=== PATIENT | male | born 1985 | race Caucasian/White ===

== ENCOUNTER 2021-06-03 14:33 | Emergency (ER) | payer BC ==
[2021-06-03 15:20] VITALS: BP 148/89; PULSE 94; TEMP 98; BMI 35.2
== END 2021-06-03 18:42 | disposition left against medical advice (07) ==
LOC: JERFT 14:33
DX: S22.42XA Multiple fractures of ribs, left side, initial encounter for closed fracture (principal); Y04.8XXA Assault by other bodily force, initial encounter; Y35.93XA Legal intervention, means unspecified, suspect injured, initial encounter
CPT/HCPCS: 71046-TC-FY; 71101-TC-LT-FY; 73070-TC-LT-FY; 99285-25

== ENCOUNTER 2022-06-15 13:42 | Emergency (ER) | payer BC ==
[2022-06-15 14:01] VITALS: RESP 16; TEMP 97.6; BMI 38.0
[2022-06-15] MEDS ORDERED: chlordiazePOXIDE HCL 25 MG CAPSULE PO ONE ×2 (17:21→17:23)
[2022-06-15] MEDS ORDERED: chlordiazePOXIDE HCL 25 MG CAPSULE ONE (17:36)
[2022-06-15 17:57] VITALS: BP 133/80; PULSE 90
== END 2022-06-15 18:09 | disposition short-term general hospital (02) ==
LOC: JER 13:42
DX: F10.129 Alcohol abuse with intoxication, unspecified (principal)
CPT/HCPCS: 99283-25

== ENCOUNTER 2022-06-15 18:46 | Inpatient (IN) | payer BC ==
[2022-06-15 19:33] VITALS: BMI 38.0
[2022-06-15] MEDS ORDERED: MAGNESIUM CITRATE 300 ML BOTTLE PO PRN (20:56)
[2022-06-15] MEDS ORDERED: BISMUTH SUBSALICYLATE 524 MG/30 ML PO PRN (20:56)
[2022-06-15] MEDS ORDERED: ACETAMINOPHEN 325 MG TABLET (FP) PO PRN ×2 (20:56)
[2022-06-15] MEDS ORDERED: LOPERAMIDE HCL 2 MG CAPSULE PO PRN (20:56)
[2022-06-15] MEDS ORDERED: MAGNESIUM HYDROX 2400MG/30ML ORAL SUSPENSION 30 ML CUP PO PRN (20:56)
[2022-06-15] MEDS ORDERED: ONDANSETRON *ODT* 4 MG TABLET SL PRN (20:56)
[2022-06-15] MEDS ORDERED: IBUPROFEN 400 MG TABLET (FP) PO PRN (20:56)
[2022-06-15] MEDS ORDERED: IBUPROFEN 600 MG TABLET (FP) PO PRN (20:56)
[2022-06-15] MEDS ORDERED: BENZOCAINE/MENTHOL (CHLORASEPTIC ) LOZENGE MM PRN (20:56)
[2022-06-15] MEDS ORDERED: DICYCLOMINE HCL 10 MG CAPSULE PO PRN (20:56)
[2022-06-15] MEDS ORDERED: P-EPHED 60MG/TRIPROLIDI 2.5MG TABLET PO PRN (20:56)
[2022-06-15] MEDS ORDERED: guaiFENesin 200 MG/10 ML 10 ML UNIT-DOSE CUPS PO PRN (20:56)
[2022-06-15] MEDS ORDERED: chlordiazePOXIDE HCL 25 MG CAPSULE PO ONE (20:58)
[2022-06-15] MEDS ORDERED: METOPROLOL TARTRATE 25 MG TABLET (FP) PO ONE (20:59)
[2022-06-15] MEDS ORDERED: chlordiazePOXIDE HCL 25 MG CAPSULE ONE (21:11)
[2022-06-15] MEDS: METHOCARBAMOL 500 MG TABLET PO PRN (22:01)
[2022-06-15] MEDS: MELATONIN 5 MG TABLETS PO PRN (22:01)
[2022-06-15] MEDS: THIAMINE HCL 100 MG TABLET (FP) PO SCH (22:02)
[2022-06-15] MEDS: MAG HYDROX/AL HYDROX/SIMETH 30 ML UNIT-DOSE CUP PO PRN (22:03)
[2022-06-15] MEDS: chlordiazePOXIDE HCL 25 MG CAPSULE PO SCH (22:06)
[2022-06-16] MEDS: hydrOXYzine PAMOATE 25 MG CAPSULE (FP) PO PRN ×3 (01:41→22:18)
[2022-06-16] MEDS: chlordiazePOXIDE HCL 25 MG CAPSULE PO PRN (01:42)
[2022-06-16] MEDS: METHOCARBAMOL 500 MG TABLET PO PRN ×3 (04:05→22:17)
[2022-06-16] MEDS: chlordiazePOXIDE HCL 25 MG CAPSULE PO SCH ×4 (05:32→22:18)
[2022-06-16] MEDS: PRENATAL VITAMINS W/ FOLIC ACID TABLET (FP) PO SCH (10:29)
[2022-06-16] MEDS: MAG HYDROX/AL HYDROX/SIMETH 30 ML UNIT-DOSE CUP PO PRN (10:31)
[2022-06-16 11:31] LABS: HEMATOCRIT 44.3 % (35.4-49); HEMOGLOBIN 15.2 GM/dL (11.7-16.9); MCH 31.9 pg (25.7-33.7); MCHC 34.4 g/dl (32.0-35.9); MEAN CELL VOLUME 92.8 fl (80-96); MEAN PLT VOLUME 7.6 fl (7.5-11.1); PLATELET COUNT 158 10^3/uL (134-434); RBC 4.78 M/mm3 (4.00-5.60); WHITE BLOOD COUNT 5.1 K/mm3 (4.0-10.0)
[2022-06-16 11:40] LABS: CALCIUM 9.4 mg/dL (8.5-10.1)
[2022-06-16 11:41] LABS: BLOOD UREA NITROGEN 12.7 mg/dL (7-18)
[2022-06-16 11:44] LABS: CREATININE 0.8 mg/dL (0.55-1.3)
[2022-06-16 11:45] LABS: BILIRUBIN,TOTAL 1.2 mg/dL (0.2-1); TOT PROT 7.3 g/dl (6.4-8.2)
[2022-06-16] MEDS: THIAMINE HCL 100 MG TABLET (FP) PO SCH (22:17)
[2022-06-17] MEDS: hydrOXYzine PAMOATE 25 MG CAPSULE (FP) PO PRN ×4 (06:23→22:19)
[2022-06-17] MEDS: chlordiazePOXIDE HCL 25 MG CAPSULE PO SCH ×4 (06:24→22:20)
[2022-06-17] MEDS: METHOCARBAMOL 500 MG TABLET PO PRN ×3 (06:26→22:19)
[2022-06-17] MEDS: PRENATAL VITAMINS W/ FOLIC ACID TABLET (FP) PO SCH (10:21)
[2022-06-17] MEDS: chlordiazePOXIDE HCL 25 MG CAPSULE PO PRN (13:04)
[2022-06-17] MEDS: MELATONIN 5 MG TABLETS PO PRN (22:18)
[2022-06-17] MEDS: THIAMINE HCL 100 MG TABLET (FP) PO SCH (22:18)
[2022-06-17] MEDS: NICOTINE 10 MG CARTRIDGE (INHALER) IH PRN (22:21)
[2022-06-18] MEDS ORDERED: chlordiazePOXIDE HCL 10 MG CAPSULE PO PRN
[2022-06-18] MEDS: chlordiazePOXIDE HCL 10 MG CAPSULE PO SCH ×4 (05:20→22:34)
[2022-06-18 09:03] VITALS: RESP 18
[2022-06-18] MEDS: PRENATAL VITAMINS W/ FOLIC ACID TABLET (FP) PO SCH (10:43)
[2022-06-18] MEDS: METHOCARBAMOL 500 MG TABLET PO PRN ×2 (10:44→22:34)
[2022-06-18] MEDS: MAG HYDROX/AL HYDROX/SIMETH 30 ML UNIT-DOSE CUP PO PRN (10:46)
[2022-06-18] MEDS: hydrOXYzine PAMOATE 25 MG CAPSULE (FP) PO PRN (22:34)
[2022-06-18] MEDS: THIAMINE HCL 100 MG TABLET (FP) PO SCH (22:34)
[2022-06-18] MEDS: MELATONIN 5 MG TABLETS PO PRN (22:34)
[2022-06-19] MEDS ORDERED: chlordiazePOXIDE HCL 10 MG CAPSULE PO SCH (05:00)
[2022-06-19] MEDS: NICOTINE 10 MG CARTRIDGE (INHALER) IH PRN (05:50)
[2022-06-19 09:20] VITALS: BP 150/107; PULSE 100; TEMP 97.3
[2022-06-20] MEDS ORDERED: chlordiazePOXIDE HCL 10 MG CAPSULE PO ONE (05:00)
== END 2022-06-19 09:00 | disposition home or self-care (01) | DRG 897 ==
LOC: YASAS 18:46 → Y3N 21:16
PROVIDERS: ADMIT Allergy & Immunology; ATTEND Surgery
PROC: HZ2ZZZZ Detoxification Services for Substance Abuse Treatment (ICD-10-PCS; principal; 2022-06-15)
DX: F10.230 Alcohol dependence with withdrawal, uncomplicated (principal); F17.290 Nicotine dependence, other tobacco product, uncomplicated; I10 Essential (primary) hypertension; K21.9 Gastro-esophageal reflux disease without esophagitis
CPT/HCPCS: 36415; 80053; 85027; 86780; 99283-25; C9803-CS; U0003; U0005

== ENCOUNTER 2023-07-21 14:29 | Inpatient (IN) | payer BC ==
[2023-07-21 15:47] VITALS: BMI 34.9
[2023-07-21] MEDS ORDERED: LORazepam 2 MG/ML SDV VIAL IM ONE (16:55)
[2023-07-21] MEDS ORDERED: chlordiazePOXIDE HCL 25 MG CAPSULE PO SCH (17:00)
[2023-07-21] MEDS ORDERED: chlordiazePOXIDE HCL 25 MG CAPSULE PO PRN (17:10)
[2023-07-21] MEDS ORDERED: BISMUTH SUBSALICYLATE 524 MG/30 ML PO PRN (17:20)
[2023-07-21] MEDS ORDERED: hydrOXYzine PAMOATE 25 MG CAPSULE (FP) PO PRN (17:20)
[2023-07-21] MEDS ORDERED: BENZONATATE 200 MG CAPSULE PO PRN (17:20)
[2023-07-21] MEDS ORDERED: guaiFENesin 600 MG TABLET.ER (FP) PO PRN (17:20)
[2023-07-21] MEDS ORDERED: ONDANSETRON *ODT* 4 MG TABLET SL PRN (17:20)
[2023-07-21] MEDS ORDERED: IBUPROFEN 400 MG TABLET (FP) PO PRN (17:20)
[2023-07-21] MEDS ORDERED: METHOCARBAMOL 500 MG TABLET PO PRN (17:20)
[2023-07-21] MEDS ORDERED: NICOTINE POLACRILEX 2 MG GUM BUC PRN (17:20)
[2023-07-21] MEDS ORDERED: POLYETHYLENE GLYCOL (HEALTHYLAX) 3350 17 GM PACKET PO PRN (17:20)
[2023-07-21] MEDS ORDERED: DICYCLOMINE HCL 10 MG CAPSULE PO PRN (17:20)
[2023-07-21] MEDS ORDERED: ACETAMINOPHEN 325 MG TABLET (FP) PO PRN (17:20)
[2023-07-21] MEDS ORDERED: BENZOCAINE/MENTHOL (CHLORASEPTIC ) LOZENGE MM PRN (17:20)
[2023-07-21] MEDS ORDERED: IBUPROFEN 600 MG TABLET (FP) PO PRN (17:20)
[2023-07-21] MEDS ORDERED: LOPERAMIDE HCL 2 MG CAPSULE PO PRN (17:20)
[2023-07-21] MEDS ORDERED: MAGNESIUM HYDROX 2400MG/30ML ORAL SUSPENSION 30 ML CUP PO PRN (17:20)
[2023-07-21] MEDS ORDERED: P-EPHED 60MG/TRIPROLIDI 2.5MG TABLET PO PRN (17:20)
[2023-07-21] MEDS ORDERED: MAG HYDROX/AL HYDROX/SIMETH 30 ML UNIT-DOSE CUP PO PRN (17:20)
[2023-07-21] MEDS ORDERED: chlordiazePOXIDE HCL 25 MG CAPSULE ONE (17:43)
[2023-07-21 21:08] VITALS: BP 150/89; PULSE 122; RESP 17; TEMP 98.8
[2023-07-21] MEDS ORDERED: THIAMINE HCL 100 MG TABLET (FP) PO SCH (22:00)
[2023-07-21] MEDS ORDERED: MELATONIN 5 MG TABLETS PO SCH (22:00)
[2023-07-22] MEDS ORDERED: PRENATAL VITAMINS W/ FOLIC ACID TABLET (FP) PO SCH (10:00)
[2023-07-23] MEDS ORDERED: chlordiazePOXIDE HCL 25 MG CAPSULE PO SCH (05:00)
[2023-07-24] MEDS ORDERED: chlordiazePOXIDE HCL 10 MG CAPSULE PO PRN
[2023-07-24] MEDS ORDERED: chlordiazePOXIDE HCL 10 MG CAPSULE PO SCH (05:00)
[2023-07-25] MEDS ORDERED: chlordiazePOXIDE HCL 10 MG CAPSULE PO SCH (05:00)
[2023-07-26] MEDS ORDERED: chlordiazePOXIDE HCL 10 MG CAPSULE PO ONE (05:00)
== END 2023-07-21 20:55 | disposition left against medical advice (07) | DRG 894 ==
LOC: YASAS 14:29 → Y6N 17:48
PROVIDERS: ADMIT Allergy & Immunology; ATTEND Surgery
PROC: HZ2ZZZZ Detoxification Services for Substance Abuse Treatment (ICD-10-PCS; principal; 2023-07-21)
DX: F10.230 Alcohol dependence with withdrawal, uncomplicated (principal); F17.290 Nicotine dependence, other tobacco product, uncomplicated; I10 Essential (primary) hypertension
CPT/HCPCS: 87635

== ENCOUNTER 2023-07-23 09:12 | Inpatient (IN) | payer BC ==
[2023-07-23 09:30] VITALS: TEMP 98.3; BMI 35.3
[2023-07-23] MEDS ORDERED: diazePAM 5 MG TABLET PO ONE (09:50)
[2023-07-23] MEDS ORDERED: LORazepam 2 MG TABLET PO ONE (09:51)
[2023-07-23] MEDS ORDERED: diazePAM CARPU-JECT 10 MG/2 ML DISP.SYRIN IVPUSH ONE ×8 (09:58→17:21)
[2023-07-23] MEDS ORDERED: diazePAM CARPU-JECT 10 MG/2 ML DISP.SYRIN ONE ×7 (10:19→17:23)
[2023-07-23 10:51] LABS: BASO % 1.3 % (0-2.0); EOS % 0.6 % (0-4.5); HEMATOCRIT 50.8 % (35.4-49); LYMPH % 37.2 % (8-40); MCH 29.3 pg (25.7-33.7); MCHC 33.6 g/dl (32.0-35.9); MEAN CELL VOLUME 87.5 fl (80-96); MEAN PLT VOLUME 7.4 fl (7.5-11.1); NEUT % 54.9 % (42.8-82.8); PLATELET COUNT 354 10^3/uL (134-434); RBC 5.81 M/mm3 (4.00-5.60); RDW 14.6 % (11.9-15.9); WHITE BLOOD COUNT 9.5 K/mm3 (4.0-10.0)
[2023-07-23] MEDS ORDERED: THIAMINE HCL 200 MG/2 ML VIAL IVPB ONE (10:56)
[2023-07-23] MEDS ORDERED: FOLIC ACID 1 MG TABLET (FP) PO ONE (10:56)
[2023-07-23] MEDS ORDERED: DEXTROSE 5%-LACTATED RINGERS 1,000 ML IV SCH (11:00)
[2023-07-23] MEDS ORDERED: FOLIC ACID INJECTION - 1 MG, THIAMINE HCL 100 MG, MULTIVIT INJECTION ADULT 10 ML in SOD... IVPB ONE (11:12)
[2023-07-23 11:24] LABS: POTASSIUM 4.2 mmol/L (3.5-5.1)
[2023-07-23 11:26] LABS: ALBUMIN 4.7 g/dl (3.4-5.0); BLOOD UREA NITROGEN 11.7 mg/dL (7-18); CALCIUM 9.6 mg/dL (8.5-10.1); MAGNESIUM 2.7 mg/dL (1.8-2.4)
[2023-07-23 11:31] LABS: BILIRUBIN,TOTAL 0.8 mg/dL (0.2-1); TOT PROT 8.6 g/dl (6.4-8.2)
[2023-07-23] MEDS ORDERED: ACETAMINOPHEN 1000 MG/100 ML BAG IVPB ONE (11:36)
[2023-07-23] MEDS ORDERED: ACETAMINOPHEN INJECTION 100 ML IVPB ONE ×2 (13:44→18:18)
[2023-07-23] MEDS ORDERED: KETOROLAC TROMETHAMINE 15 MG/ML VIAL IVPUSH ONE (14:36)
[2023-07-23] MEDS ORDERED: NICOTINE 14 MG/24 HOURS TOPICAL PATCH TD SCH (14:45)
[2023-07-23] MEDS ORDERED: KETOROLAC TROMETHAMINE 15 MG/ML VIAL ONE (14:58)
[2023-07-23] MEDS ORDERED: NICOTINE 14 MG/24 HOURS TOPICAL PATCH TD ONE (14:58)
[2023-07-23] MEDS ORDERED: LIDOCAINE 4% PATCH TP ONE ×5 (15:18→18:19)
[2023-07-23] MEDS ORDERED: LORazepam 1 MG TABLET PO PRN (15:29)
[2023-07-23 15:30] VITALS: BP 143/84; PULSE 103; RESP 16
[2023-07-23] MEDS ORDERED: NICOTINE POLACRILEX 2 MG GUM BUC PRN (15:30)
[2023-07-23] MEDS ORDERED: SODIUM CHLORIDE 1,000 ML IV SCH (15:45)
[2023-07-23] MEDS ORDERED: PRENATAL VITAMINS W/ FOLIC ACID TABLET (FP) PO SCH (15:45)
[2023-07-23] MEDS ORDERED: LORazepam 1 MG TABLET PO SCH (17:00)
[2023-07-23] MEDS ORDERED: chlordiazePOXIDE HCL 25 MG CAPSULE PO ONE (17:57)
[2023-07-23] MEDS ORDERED: ACETAMINOPHEN 1000 MG/100 ML BAG IVPB PRN (18:00)
[2023-07-23] MEDS ORDERED: chlordiazePOXIDE HCL 25 MG CAPSULE ONE (18:18)
[2023-07-23] MEDS ORDERED: LIDOCAINE PATCH REMOVAL MC SCH ×2 (22:00)
[2023-07-24] MEDS ORDERED: LORazepam 1 MG TABLET PO SCH (05:00)
[2023-07-24] MEDS ORDERED: THIAMINE HCL 100 MG TABLET (FP) PO SCH (10:00)
[2023-07-24] MEDS ORDERED: LIDOCAINE 5% TOPICAL PATCH TP SCH (10:00)
[2023-07-24] MEDS ORDERED: LIDOCAINE 4% PATCH TP SCH (10:00)
[2023-07-24] MEDS ORDERED: ENOXAPARIN NA (PORCINE) 40 MG/0.4 ML DISP.SYRIN SQ SCH (10:00)
[2023-07-24] MEDS ORDERED: MULTIVIT INJ. ADULT COMBO WITH VIT K 1 COMBO 10 ML VIAL IV ONE (10:56)
[2023-07-24] MEDS ORDERED: LIDOCAINE PATCH REMOVAL MC SCH (22:00)
[2023-07-25] MEDS ORDERED: LORazepam 0.5 MG TABLET PO PRN
[2023-07-25] MEDS ORDERED: LORazepam 0.5 MG TABLET PO SCH (05:00)
[2023-07-26] MEDS ORDERED: LORazepam 0.5 MG TABLET PO ONE (05:00)
== END 2023-07-23 20:05 | disposition left against medical advice (07) | DRG 894 ==
LOC: JER 09:12 → JERBED 13:49
PROVIDERS: ADMIT Internal Medicine; ATTEND Internal Medicine
DX: F10.230 Alcohol dependence with withdrawal, uncomplicated (principal); F32.A Depression, unspecified; I10 Essential (primary) hypertension; M54.9 Dorsalgia, unspecified; F17.210 Nicotine dependence, cigarettes, uncomplicated; K70.10 Alcoholic hepatitis without ascites; Z53.29 Procedure and treatment not carried out because of patient's decision for other reasons; R00.0 Tachycardia, unspecified
CPT/HCPCS: 36415; 70450-TC; 72125-TC; 72131-TC; 80053; 80307; 83735; 84436; 84443; 85025; 93005; 93010; 99285-25